=== PATIENT | female | born 1985 | race Caucasian/White ===

== ENCOUNTER 2017-11-28 09:31 | Emergency (ER) | payer OTHER ==
[2017-11-28 09:46] LABS: ADD MAN DIFF? NO
[2017-11-28 09:49] LABS: BASO # 0.1 x10^3/uL (0.0-0.2); BASO % 1 % (0-3); EOS # 0.1 x10^3/uL (0.0-0.7); EOS % 2 % (0-3); HEMATOCRIT 40.2 % (36.0-47.0); HEMOGLOBIN 13.3 g/dL (12.0-15.5); LYMPH # 2.5 x10^3/uL (1.0-4.8); LYMPH % 29 % (24-48); MEAN CORPUSCULAR HEMOGLOBIN 30 pg (25-35); MEAN CORPUSCULAR HGB CONC 33 g/dL (31-37); MEAN CORPUSCULAR VOLUME 89 fL (79-100); MONO # 0.5 x10^3/uL (0.0-1.1); MONO % 6 % (0-9); NEUT # 5.4 x10^3uL (1.8-7.7); NEUT % 63 % (31-73); PLATELET COUNT 307 x10^3/uL (140-400); RED BLOOD COUNT 4.49 x10^6/uL (3.50-5.40); RED CELL DISTRIBUTION WIDTH 13.1 % (11.5-14.5); WHITE BLOOD COUNT 8.6 x10^3/uL (4.0-11.0)
[2017-11-28 09:55] LABS: URINE HCG POC HCG NEGATIVE (Negative)
[2017-11-28 10:03] LABS: BILIRUBIN,URINE NEGATIVE (NEG); CLARITY,URINE CLEAR; COLOR,URINE YELLOW; GLUCOSE,URINE NEGATIVE (NEG); NITRITE,URINE NEGATIVE (NEG); PH,URINE 6.5; PROTEIN,URINE NEGATIVE (NEG-TRACE); UROBILINOGEN,URINE 0.2 mg/dL (0.2 mg/dL)
[2017-11-28 10:06] LABS: ANION GAP 6 (6-14); BARBITURATES NEG (NEG); BENZODIAZEPINES NEG (NEG); BLOOD UREA NITROGEN 12 mg/dL (7-20); BUN/CREATININE RATIO 24 (6-20); CALCIUM 8.4 mg/dL (8.5-10.1); CANNABINOIDS NEG (NEG); CARBON DIOXIDE 25 mmol/L (21-32); CHLORIDE 106 mmol/L (98-107); COCAINE NEG (NEG); CREATININE 0.5 mg/dL (0.6-1.0); GFR 144.9; GLUCOSE 93 mg/dL (70-99); METHADONE NEG (NEG); OPIATES NEG (NEG); PHENCYCLIDINE NEG (NEG); POTASSIUM 4.3 mmol/L (3.5-5.1); PROTHROMBIN TIME PATIENT 12.4 SEC (11.7-14.0); SODIUM 137 mmol/L (136-145)
[2017-11-28 10:12] LABS: ALBUMIN 3.2 g/dL (3.4-5.0); ALBUMIN/GLOBULIN RATIO 0.9 (1.0-1.7); ALK PHOS 59 U/L (46-116); ALT (SGPT) 50 U/L (14-59); AST (SGOT) 18 U/L (15-37); LIPASE 130 U/L (73-393); MAGNESIUM 2.1 mg/dL (1.8-2.4); TOTAL BILIRUBIN 0.3 mg/dL (0.2-1.0); TOTAL PROTEIN 6.6 g/dL (6.4-8.2)
[2017-11-28 10:16] LABS: AMPHETAMINE/METHAMPHETAMINE NEG (NEG); ETHANOL, URINE NEG (NEG)
[2017-11-28 10:17] LABS: TROPONINI < 0.017 ng/mL (0.000-0.055)
[2017-11-28 10:18] LABS: THYROID STIM HORMONE (TSH) 3.223 uIU/mL (0.358-3.74)
[2017-11-28 10:22] LABS: BACTERIA,URINE 0 /HPF (0-FEW); RBC,URINE 0 /HPF (0-2); SQUAMOUS EPITHELIAL CELL,UR MOD /LPF
[2017-11-28 10:23] LABS: NT-PRO BNP 42 pg/mL (0-124)
[2017-11-28 10:23] LABS: CKMB MASS 0.6 ng/mL (0.0-3.6); CREATINE KINASE 52 U/L (26-192); TRICHOMONAS,URINE PRESENT
[2017-11-28] MEDS: ASPIRIN 325 MG TABLET PO (10:26)
[2017-11-28] MEDS: metroNIDAZOLE 500 MG TABLET PO (10:48)
[2017-11-28] MEDS: AZITHROMYCIN 250 MG TABLET. PO (10:48)
[2017-11-28] MEDS: cefTRIAXone IM 250 MG VIAL IM (10:49)
== END 2017-11-28 11:05 | disposition short-term general hospital (02) ==
LOC: ER 09:31
DX: M94.0 Chondrocostal junction syndrome [Tietze] (principal); A59.9 Trichomoniasis, unspecified; F17.200 Nicotine dependence, unspecified, uncomplicated
CPT/HCPCS: 36415; 71045; 80053; 80307; 81001; 81025; 82553; 83690; 83735; 83880; 84443; 84484; 85025; 85610; 93005; 96372; 99285-25; J0696; Q0144

== ENCOUNTER 2017-11-28 17:22 | Emergency (ER) | payer OTHER ==
[2017-11-28] MEDS: ACETAMINOPHEN 325 MG TABLET. PO (18:45)
== END 2017-11-28 19:18 | disposition home or self-care (01) ==
LOC: ER 17:22
DX: E86.0 Dehydration (principal); Z98.51 Tubal ligation status; F12.10 Cannabis abuse, uncomplicated; Z90.49 Acquired absence of other specified parts of digestive tract; F15.10 Other stimulant abuse, uncomplicated
CPT/HCPCS: 99282

== ENCOUNTER 2017-12-15 12:34 | Emergency (ER) | payer OTHER ==
[2017-12-15 13:13] LABS: URINE HCG POC HCG NEGATIVE (Negative)
[2017-12-15] MEDS: IBUPROFEN 800 MG TABLET. PO (14:01)
[2017-12-15 15:00] LABS: BILIRUBIN,URINE NEGATIVE (NEG); CLARITY,URINE CLEAR; COLOR,URINE YELLOW; GLUCOSE,URINE NEGATIVE (NEG); NITRITE,URINE NEGATIVE (NEG); PROTEIN,URINE NEGATIVE (NEG-TRACE); UROBILINOGEN,URINE 0.2 mg/dL (0.2 mg/dL)
[2017-12-15 15:14] LABS: BACTERIA,URINE MODERATE /HPF (0-FEW); RBC,URINE 0 /HPF (0-2); SQUAMOUS EPITHELIAL CELL,UR MOD /LPF; WBC,URINE 0 /HPF (0-4)
== END 2017-12-15 15:40 | disposition home or self-care (01) ==
LOC: ER 12:34
DX: R10.2 Pelvic and perineal pain (principal); F12.10 Cannabis abuse, uncomplicated; F15.10 Other stimulant abuse, uncomplicated; Z98.51 Tubal ligation status; Z90.49 Acquired absence of other specified parts of digestive tract
CPT/HCPCS: 76856; 81001; 81025; 87086; 99285-25